=== PATIENT | male | born 1975 ===

== ENCOUNTER 2020-09-25 09:03 | Outpatient (CLI) | payer OTHER, SELFPAY | END 2020-09-25 09:04 | disposition home or self-care (01) | LOC: ANHCOVIDVC 09:03 | PROVIDERS: PCP Family Medicine | DX: Z23 Encounter for immunization (principal) | CPT/HCPCS: 0001A; 91300 ==

== ENCOUNTER 2020-10-16 09:00 | Outpatient (CLI) | payer OTHER, SELFPAY | END 2020-10-16 09:01 | disposition home or self-care (01) | LOC: ANHCOVIDVC 09:00 | PROVIDERS: PCP Family Medicine | DX: Z23 Encounter for immunization (principal) | CPT/HCPCS: 0002A; 91300 ==

== ENCOUNTER 2021-04-19 08:31 | Emergency (ER) | payer OTHER, SELFPAY ==
[2021-04-19 08:38] VITALS: BP 142/75; PULSE 88; RESP 20; TEMP 36.9; O2SAT 100
--- NOTE | 2021-04-19 08:51 | ED.GENADULT ---
HPI - General Adult General Chief complaint: Skin/Abscess/Foreign Body Stated complaint: Rash Time Seen by Provider: 04/19/21 08:34 Source: patient Mode of arrival: ambulatory Limitations: no limitations History of Present Illness HPI narrative: Pleasant 45 y/o male. PMHx LINDSEY, MDD, GIRMA. Presents to [facility] this AM with acute complaints of itchy skin patches located to his bilateral ankles and elbows. Pt reports to have had similar integumentary issues in the past 1 year. He notes worsening erythema and itching after hot showers or in colder weather. Subtherapeutic response to home OTC antifungal remedies. No additional areas of integumentary involvement. No household changes. No household members w/similar issues. Denies dyspnea, wheezing. He is without additional acute c/o illness upon PE. Related Data Home Medications Medication Instructions Recorded Confirmed ascorbate calcium (vitamin C) 500 500 mg PO DAILY 02/12/20 mg tablet fluticasone propionate 50 1 spray NASAL DAILY 02/12/20 mcg/actuation nasal spray,suspension dijvaldiqoft-zul-nrnuh acid-vit 1 tablet PO DAILY 02/12/20 K-lycop 400 mcg-20 mcg-370 mcg tablet zinc 50 mg tablet 50 mg PO DAILY 02/12/20 Allergies Allergy/AdvReac Type Severity Reaction Status Date / Time NDKA Allergy Unknown Unknown Uncoded 04/19/21 08:46 NKFA Allergy Unknown Unknown Uncoded 03/20/20 09:20 Review of Systems Review of Systems: CONSTITUTIONAL: Denies fever, chills, sweats. EYES: Denies visual changes, redness, discharge. ENT: Denies rhinorrhea, congestion, sore throat, otalgia. CARDIOVASCULAR: Denies chest pain, palpitations, edema. RESPIRATORY: Denies dyspnea, wheezing, cough GASTROINTESTINAL: Denies abdominal pain, nausea, vomiting, diarrhea. GENITOURINARY: Denies dysuria, hematuria, abnormal discharge SKIN: Positive rash & itching. MUSCULOSKELETAL: Denies acute back pain, joint pain, or myalgia. NEUROLOGIC: Denies numbness, or focal weakness. PSYCHIATRIC: Denies anxiety or depression. All systems reviewed & are unremarkable except as noted in HPI and below PMFSH Past Medical History Medical History Anxiety Arthritis Depression Surgical History Surgical History History of ear surgery Family History Family History Mother Family history of malignant neoplasm of breast in first degree relative Hypertension Father Memory change Grandparent Diabetes mellitus Obesity Other Depression Family history of cardiovascular disease Family history of osteoporosis Social History Social History Smoking status: Never smoker Second hand tobacco smoke exposure: No Alcohol intake: current Drinks per week: 1 Substance use: never Substance use type: does not use Exam Narrative: GENERAL: This is a well-nourished, well-developed adult, in no apparent distress. HEAD: normocephalic, atraumatic. EYES: PERRL. Sclera clear/white. EARS: External ears normal. NOSE: External nose normal. THROAT: Mucous membranes moist, posterior pharynx clear. No exudates. NECK: Neck supple, non-tender without lymphadenopathy, masses or thyromegaly. CARDIOVASCULAR: Regular rate and rhythm without murmurs, gallops, or rubs. RESPIRATORY: Clear to auscultation. GASTROINTESTINAL: Abdomen soft, non-tender. SKIN: warm, intact. With erythematous and eczematous lesions (dry, scaling and crusted areas of skin) located to bilateral inner ankles and elbows. No open areas or discharge. Surrounding tissue blanches well. NEURO: Alert, active, and age appropriate. No focal neurologic deficits. Course Vital Signs Vital signs: Vital Signs Temperature 36.9 C 04/19/21 08:38 Pulse Rate 88 04/19/21 08:38 Respirat
== END 2021-04-19 08:52 | disposition home or self-care (01) ==
PROVIDERS: Emergency Provider Nurse Practitioner Adult Health
DX: L30.9 Dermatitis, unspecified (principal); M19.90 Unspecified osteoarthritis, unspecified site
CPT/HCPCS: 99213; G0463

== ENCOUNTER 2021-05-31 11:01 | Emergency (ER) | payer OTHER, SELFPAY ==
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
[2021-05-31 11:10] VITALS: BP 152/86; PULSE 89; RESP 20; TEMP 37; O2SAT 99
[2021-05-31 11:23] VITALS: BP 152/86; PULSE 89; RESP 20; TEMP 37; O2SAT 99
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
== END 2021-05-31 12:37 | disposition home or self-care (01) ==
PROVIDERS: Emergency Provider Nurse Practitioner
DX: S29.012A Strain of muscle and tendon of back wall of thorax, initial encounter (principal); V49.40XA Driver injured in collision with unspecified motor vehicles in traffic accident, initial encounter; M19.90 Unspecified osteoarthritis, unspecified site
CPT/HCPCS: 72050; 72100; 99213; G0463

== ENCOUNTER 2022-01-05 17:14 | Emergency (ER) | payer OTHER, SELFPAY ==
[2022-01-05 17:23] VITALS: BP 143/89; PULSE 84; RESP 16; TEMP 37.3; O2SAT 100
--- NOTE | 2022-01-05 17:35 | ED.SKABFB ---
HPI - Skin/Abscess/Foreign Bdy General Chief complaint: Skin/Abscess/Foreign Body Stated complaint: Right Leg Swelling Time Seen by Provider: 01/05/22 17:35 Source: patient Mode of arrival: ambulatory Limitations: no limitations History of Present Illness HPI narrative: 46 yo M presents with itchy rash to both feet. Was seen here in the past for same issue and given steroids and steroid cream. Was told was eczema. Never followed up with PCP or rn bsn. Has rash again but much worse. Is concerned for psoriasis. No other complaints today. All systems reviewed and negative except as noted above. Related Data Home Medications Medication Instructions Recorded Confirmed triamcinolone acetonide 0.1 1 applic topical TID 01/05/22 01/05/22 %-emollient comb.no.45 topical cream Allergies Allergy/AdvReac Type Severity Reaction Status Date / Time No Known Allergies Allergy Verified 01/05/22 17:36 Review of Systems Review of Systems: CONSTITUTIONAL: Denies fever, chills, or sweats. EYES: Denies visual changes, redness, or discharge. ENT: Denies rhinorrhea, congestion, sore throat, or otalgia. CARDIOVASCULAR: Denies chest pain, palpitations, or edema. RESPIRATORY: Denies cough or dyspnea. GASTROINTESTINAL: Denies abdominal pain, nausea, vomiting, or diarrhea. GENITOURINARY: Denies dysuria or hematuria. SKIN: Reports itchy rash to feet. MUSCULOSKELETAL: Denies back pain, joint pain, or myalgia. NEUROLOGIC: Denies headache, numbness, or weakness. PSYCHIATRIC: Denies anxiety or depression. All other systems reviewed are negative, except as documented in HPI. [facility] Past Medical History Medical History Anxiety Arthritis Depression Surgical History Surgical History History of ear surgery Family History Family History Mother Family history of malignant neoplasm of breast in first degree relative Hypertension Father Memory change Grandparent Diabetes mellitus Obesity Other Depression Family history of cardiovascular disease Family history of osteoporosis Social History Social History Smoking status: Never smoker Second hand tobacco smoke exposure: No Alcohol intake: current Drinks per week: 1 Substance use: never Substance use type: does not use Comments At time of signature, agree with nursing past medical, surgical, social and family history. There is no relevant family history pertinent to the presenting complaint. Exam Narrative: GENERAL: This is a well-nourished, well-developed patient, in no apparent distress. HEAD: normocephalic, atraumatic. EYES: PERRL. Sclera clear/white. Vision is grossly intact. EARS: External ears normal NOSE: External nose normal NECK: Neck supple, non-tender without lymphadenopathy, masses or thyromegaly. CARDIOVASCULAR: Regular rate and rhythm without murmurs, gallops, or rubs. RESPIRATORY: Clear to auscultation. Breath sounds equal bilaterally. No wheezes, rales, or rhonchi. SKIN: warm, Dry, intact, good texture and turgor. erythematous, circular lesions to dorsal aspect bilateral feet. No drainage. flat. NEURO: awake, alert, and oriented to person, place and time. There were no obvious focal neurologic abnormalities. EXTREMITIES: No joint tenderness, effusion, or edema noted. Course Course Level of Care: Express Care Visit Vital Signs Vital signs: Vital Signs Temperature 37.3 C 01/05/22 17:23 Pulse Rate 84 01/05/22 17:23 Respiratory Rate 16 01/05/22 17:23 Blood Pressure 143/89 H 01/05/22 17:23 Pulse Oximetry 100 01/05/22 17:23 Oxygen Delivery Room Air 01/05/22 17:23 Temperature 37.3 C 01/05/22 17:38 Pulse Rate 84 01/05/22 17:38 Respiratory Rate 16 01/05/22 17:38 Blood Pressure 14
[2022-01-05 17:38] VITALS: BP 143/89; PULSE 84; RESP 16; TEMP 37.3; O2SAT 100
== END 2022-01-05 18:02 | disposition home or self-care (01) ==
PROVIDERS: Emergency Provider Nurse Practitioner Family
DX: L30.9 Dermatitis, unspecified (principal); M19.90 Unspecified osteoarthritis, unspecified site
CPT/HCPCS: 99212; G0463

== ENCOUNTER 2023-02-08 09:10 | Outpatient (CLI) | payer OTHER, SELFPAY ==
[2023-02-08 18:32] LABS: Basophils Absolute Auto 0.1 K/mm3 (0.0-0.1); Basophils Percent Auto 0.6 % (0.2-1.2); Eosinophils Absolute Auto 0.1 K/mm3 (0-0.3); Eosinophils Percent Auto 1.3 % (0-4.4); Hematocrit 45.8 % (42.0-52.0); Hemoglobin 14.5 g/dL (14.0-18.0); Immature Granulocyte Absolute 0.05 K/mm3 (0.00-0.031); Immature Granulocyte Percent A 0.6 % (0-0.5); Lymphocytes Absolute Auto 0.95 K/mm3 (0.9-3.2); Lymphocytes Percent Auto 12.3 % (18.3-44.2); Mean Corpuscular HGB Conc 31.7 g/dl (32-36); Mean Corpuscular Volume 94.8 fl (80-100); Mean Platelet Volume 10.5 fl (7.4-10.4); Monocytes Absolute Auto 0.7 K/mm3 (0.1-0.6); Monocytes Percent Auto 9.3 % (2.6-8.5); Neutrophils Absolute Auto 5.9 K/mm3 (1.3-6.7); Neutrophils Percent Auto 75.9 % (45.5-73.1); Platelet Count Result 284 k/mm3 (150-375); Red Blood Count 4.83 M/mm3 (4.6-6.20); Red Cell Distribution Width 13.7 % (11.5-14.5); White Blood Count 7.7 K/mm3 (4.5-10.0)
[2023-02-08 19:16] LABS: Vitamin D 25 Hydroxy 35.5 ng/mL
[2023-02-08 19:48] LABS: Alanine Aminotransferase 37 U/L (6-50); Albumin Level 4.6 g/dL (3.5-5.1); Alkaline Phosphatase 71 U/L (38-126); Anion Gap 14 mmol/L (8-16); Aspartate Amino Transferase 81 U/L (17-59); Bilirubin,Total 0.3 mg/dL (0.2-1.3); Blood Urea Nitrogen 16 mg/dL (9-20); Calcium 9.2 mg/dL (8.4-10.2); Carbon Dioxide 24 mmol/L (22-30); Chloride 102 mmol/L (98-107); Cholesterol 233 mg/dL (0-200); Estimated Glomerular Filt Rate > 60; Glucose 88 mg/dL (65-110); HDL Direct 45 mg/dL; Potassium 4.6 mmol/L (3.4-5.0); Sodium 140 mmol/L (137-145); Triglycerides 91 mg/dL (<150)
[2023-02-08 19:59] LABS: LDL Cholesterol Direct 144 mg/dL
[2023-02-08 20:27] LABS: Hemoglobin A1C 5.7 % (<5.7)
[2023-02-11 16:48] LABS: Testosterone Total 324 ng/dL (250-1100)
== END 2023-02-08 09:11 | disposition home or self-care (01) ==
LOC: ANHBWCLAB 09:11
PROVIDERS: PCP Nurse Practitioner Adult Health; Visit Provider Nurse Practitioner Adult Health
DX: E78.5 Hyperlipidemia, unspecified (principal); N52.9 Male erectile dysfunction, unspecified; R79.89 Other specified abnormal findings of blood chemistry
CPT/HCPCS: 36415; 80053; 80061; 82306; 83036; 84402; 84403; 84443; 85025

== ENCOUNTER 2023-03-22 07:26 | Outpatient (CLI) | payer OTHER, SELFPAY ==
--- NOTE | 2023-03-22 07:28 | ECHO_ITS ---
Patient Info Name: Gulshan Cordova Age: 47 years : 1975 Gender: Male Ht: 68 in Wt: 210 lbs BSA: 2.17 m2 HR: 83 bpm BP: 160 / 82 mmHg Heart Rhythm: Sinus Rhythm Technical Quality: Fair Exam Date: 03/22/2023 7:45 AM Exam Location: [facility] Patient Status: Outpatient Admit Date: 03/22/2023 Staff Ordering Physician: Elsie Guevara APRN Senior Policy Analyst: Delmi Contreras RDCS Attending Provider: Elsie Guevara APRN Referring Physician: Ismael GAN; Exam Type: CA echo doppler color flow Study Info Indications Z82.49 - Family history of ischemic heart disease and other diseases of the circulatory system Complete two-dimensional, color flow and Doppler transthoracic echocardiogram is performed. Summary 1. Complete two-dimensional, color flow and Doppler transthoracic echocardiogram is performed. 2. Left ventricular chamber dimension is normal. 3. Left ventricular systolic function is normal, estimated at 60-65%. 4. There is mild concentric increased left ventricular wall thickness. 5. The left ventricular diastolic function is normal. 6. E/e' 8 is minimally elevated. 7. There is trace mitral valve regurgitation. 8. There is trace tricuspid valve regurgitation. 9. No pulmonary hypertension, estimated pulmonary arterial systolic pressure is 25 mmHg. Left Ventricle E/e' 8 is minimally elevated. Left ventricular chamber dimension is normal. Left ventricular systolic function is normal, estimated at 60-65%. There is mild concentric increased left ventricular wall thickness. The left ventricular diastolic function is normal. Right Ventricle Right ventricular systolic function is normal and with normal TAPSE 2.2 cm. Right ventricular chamber dimension is normal. Left Atria Left atrial chamber dimension is normal. Right Atria Right atrial chamber dimension is normal. Aortic Valve The aortic valve is trileaflet. There is no aortic valve stenosis. There is no aortic valve regurgitation. Pulmonic Valve There is no pulmonic regurgitation. Mitral Valve There is no mitral valve stenosis. There is trace mitral valve regurgitation. Tricuspid Valve There is trace tricuspid valve regurgitation. No pulmonary hypertension, estimated pulmonary arterial systolic pressure is 25 mmHg. Pericardium/Pleural There is no pericardial effusion. Inferior Vena Cava Normal inferior vena cava with >50% collapse upon inspiration consistent with normal right atrial pressure, 5 mmHg. Aorta The aortic root size at the sinus of Valsalva is normal. Left Ventricular Outflow Tract Name Value Normal LVOT 2D LVOT Diameter 2.0 cm LVOT Doppler LVOT Peak Gradient 4 mmHg LVOT Mean Gradient 2 mmHg LVOT VTI 19 cm LVOT VTI/AV VTI Ratio 0.8 LVOT Stroke Volume 59 ml LVOT CO 4.4 l/min LVOT CI 2.0 l/min/m2 Pulmonic Valve Name Value Normal
--- NOTE | 2023-03-22 07:29 | EST_ITS ---
Patient Info Name: Gulshan Cordova Age: 47 years : 1975 Gender: Male Ht: 68 in Wt: 210 lbs BSA: 2.17 m2 HR: 76 bpm BP: 137 / 93 mmHg Heart Rhythm: Sinus Rhythm Exam Date: 03/22/2023 8:29 AM Exam Location: [facility] Patient Status: Outpatient Admit Date: 03/22/2023 Staff Ordering Physician: Elsie Guevara APRN Attending Provider: Elsie Guevara APRN Exercise Technologist: Nakita Green CT Exercise Physician: Orlin Bae DO Exam Type: CA stress test treadmill Study Info Indications Z82.49 - Family history of ischemic heart disease and other diseases of the circulatory system A treadmill exercise stress test was performed. Summary 1. 1. Negative Nabil exercise stress test for ischemic ST changes by ECG criteria. 2. 2. Good functional capacity, achieving 10 METs of workload. 3. 3. Appropriate HR response to exercise. 4. 4. Appropriate HR recovery at 1 minute post exercise. 5. 5. No imaging with stress testing. 6. 6. Patient informed of the above results. Protocol: Nabil Stress ECG Details Stage: REST Duration (min): 3 min : 12 sec Speed (mph): 0.0 Grade (%): 0 HR (bpm): 79 SBP (mmHg): 137 DBP (mmHg): 93 METS: --- Stage: REST Duration (min): 18 min : 9 sec Speed (mph): 0.0 Grade (%): 0 HR (bpm): 81 SBP (mmHg): 137 DBP (mmHg): 93 METS: --- Stage: STAGE 1 Duration (min): 1 min : 0 sec Speed (mph): 1.7 Grade (%): 10 HR (bpm): 106 SBP (mmHg): 137 DBP (mmHg): 93 METS: --- Stage: STAGE 1 Duration (min): 2 min : 0 sec Speed (mph): 1.7 Grade (%): 10 HR (bpm): 111 SBP (mmHg): 137 DBP (mmHg): 93 METS: --- Stage: STAGE 1 Duration (min): 3 min : 0 sec Speed (mph): 1.7 Grade (%): 10 HR (bpm): 116 SBP (mmHg): 163 DBP (mmHg): 94 METS: --- Stage: STAGE 2 Duration (min): 1 min : 0 sec Speed (mph): 2.5 Grade (%): 12 HR (bpm): 124 SBP (mmHg): 163 DBP (mmHg): 94 METS: --- Stage: STAGE 2 Duration (min): 2 min : 0 sec Speed (mph): 2.5 Grade (%): 12 HR (bpm): 130 SBP (mmHg): 194 DBP (mmHg): 63 METS: --- Stage: STAGE 2 Duration (min): 3 min : 0 sec Speed (mph): 2.5 Grade (%): 12 HR (bpm): 135 SBP (mmHg): 194 DBP (mmHg): 63 METS: --- Stage: STAGE 3 Duration (min): 1 min : 0 sec Speed (mph): 3.4 Grade (%): 14 HR (bpm): 143 SBP (mmHg): 177 DBP (mmHg): 56 METS: --- Stage: STAGE 3 Duration (min): 2 min : 0 sec Speed (mph): 3.4 Grade (%): 14 HR (bpm): 147 SBP (mmHg): 177 DBP (mmHg): 56 METS: --- Stage: STAGE 3 Duration (min): 3 min : 0 sec Speed (mph): 3.4 Grade (%): 14 HR (bpm): 150 SBP (mmHg): 191 DBP (mmHg): 57 METS: --- Stage: RECOVERY Duration (min): 0 min : 59 sec Speed (mph): 0.0 Grade (%): 0 HR (bpm): 133 SBP (mmHg): 191 DBP (mmHg): 57 METS: --- Stage: RECOVERY Duration (min): 1 min : 59 sec Speed (mph): 0.0 Grade
== END 2023-03-22 07:27 | disposition home or self-care (01) ==
PROVIDERS: PCP Nurse Practitioner Adult Health; Visit Provider Nurse Practitioner Adult Health
DX: R93.1 Abnormal findings on diagnostic imaging of heart and coronary circulation (principal); Z82.49 Family history of ischemic heart disease and other diseases of the circulatory system; Z13.6 Encounter for screening for cardiovascular disorders
CPT/HCPCS: 93017; 93306